=== PATIENT | female | born 1995 | race African-American/Black ===

== ENCOUNTER 2018-05-29 19:44 | Emergency (ER) | payer MEDICAID, OTHER ==
[~2018-05-29] VITALS: Ht 172.7 cm; Wt 78.0 kg
[2018-05-29 23:13] VITALS: BP 125/53
== END 2018-05-29 23:23 | disposition home or self-care (01) ==
LOC: ER 19:44
DX: O26.891 Other specified pregnancy related conditions, first trimester (principal); H44.002 Unspecified purulent endophthalmitis, left eye; Z3A.12 12 weeks gestation of pregnancy
CPT/HCPCS: 10060; 99283

== ENCOUNTER 2018-06-27 19:02 | Emergency (ER) | payer OTHER ==
[~2018-06-27] VITALS: Ht 157.5 cm; Wt 82.0 kg
[2018-06-27 21:06] LABS: CHLORIDE 105 mEq/L (98-107)
[2018-06-27 21:17] LABS: CLARITY URINE CLOUDY (CLEAR); COLOR URINE YELLOW (YELLOW); KETONES URINE NEGATIVE (NEGATIVE); LEUKOCYTE ESTERASE URINE 1+ (NEGATIVE); NITRITE URINE NEGATIVE (NEGATIVE); OCCULT BLOOD URINE NEGATIVE (NEGATIVE); PROTEIN URINE NEGATIVE (NEGATIVE); SPECIFIC GRAVITY URINE 1.022 (1.005-1.030)
[2018-06-27 21:29] LABS: *AMPHETAMINES SCREEN URINE NEGATIVE (NEGATIVE); *BARBITURATES SCREEN URINE NEGATIVE (NEGATIVE); *BENZODIAZEPINES SCREEN URINE NEGATIVE (NEGATIVE); *COCAINE SCREEN URINE NEGATIVE (NEGATIVE); CANNABINOID URINE SCREEN NEGATIVE (NEGATIVE); METHADONE URINE SCREEN NEGATIVE (NEGATIVE); OPIATES URINE SCREEN NEGATIVE (NEGATIVE); PHENCYCLIDINE URINE SCREEN NEGATIVE (NEGATIVE)
[2018-06-27 21:30] VITALS: BP 137/68
[2018-06-27 21:30] LABS: B-HCG QUANTITATIVE 12768 mIU/mL (<3)
[2018-06-27 21:39] LABS: BASOPHILS % 0.6 % (0.0-2.0); EOSINOPHILS % 2.2 % (0.0-5.0); HEMATOCRIT. 35.1 % (36.0-48.0); HEMOGLOBIN. 12.6 g/dL (12.0-16.0); LYMPHOCYTES % 22.7 % (20.0-50.0); MEAN CORPUSCULAR HEMOGLOBIN 29.5 pg (28.0-32.0); MEAN CORPUSCULAR VOLUME 82.1 fL (81.0-99.0); MEAN PLATELET VOLUME 8.1 fl (7.4-10.4); MONOCYTES % 12.8 % (2.0-8.0); NEUTROPHILS % 61.7 % (40.0-76.0); PLATELET 298 x1000/uL (130-400); RED BLOOD CELL COUNT 4.27 mill/uL (4.2-5.4); RED CELL DISTRIBUTION WIDTH 14.7 % (11.6-14.6)
[2018-06-27] MEDS ORDERED: NITROFURANTOIN 100MG M/M CAPSULE PO ONE (23:45)
== END 2018-06-27 23:24 | disposition left against medical advice (07) ==
LOC: ER 19:02
DX: O99.89 Other specified diseases and conditions complicating pregnancy, childbirth and the puerperium (principal); J06.9 Acute upper respiratory infection, unspecified; E86.0 Dehydration; O23.42 Unspecified infection of urinary tract in pregnancy, second trimester; O26.832 Pregnancy related renal disease, second trimester; N28.9 Disorder of kidney and ureter, unspecified; O99.282 Endocrine, nutritional and metabolic diseases complicating pregnancy, second trimester; E88.09 Other disorders of plasma-protein metabolism, not elsewhere classified; D72.821 Monocytosis (symptomatic); Z3A.16 16 weeks gestation of pregnancy
CPT/HCPCS: 36415; 76815; 80305; 81025; 84702; 87070; 87430; 87804; 99285

== ENCOUNTER 2022-01-22 11:04 | Emergency (ER) | payer OTHER ==
[~2022-01-22] VITALS: Ht 177.8 cm; Wt 91.0 kg
[2022-01-22] MEDS ORDERED: NAPR-681 PO (11:35)
[2022-01-22] MEDS ORDERED: AMOX-494 PO (11:35)
[2022-01-22 12:02] VITALS: BP 137/85
== END 2022-01-22 12:15 | disposition home or self-care (01) ==
LOC: ER 11:04
DX: J02.9 Acute pharyngitis, unspecified (principal); Z98.890 Other specified postprocedural states
CPT/HCPCS: 99283

== ENCOUNTER 2022-11-20 14:11 | Emergency (ER) | payer MEDICAID, OTHER ==
[~2022-11-20] VITALS: Ht 177.8 cm; Wt 96.0 kg
[~2022-11-20 14:11] MED LIST: AMOX-494 PO; NAPR-681 PO
[2022-11-20 14:14] VITALS: BP 124/59
[2022-11-20] MEDS ORDERED: ACETAMINOPHEN 325MG TABLET PO PRN (15:00)
[2022-11-20 15:13] LABS: CLARITY URINE TURBID (CLEAR); COLOR URINE YELLOW (YELLOW); KETONES URINE NEGATIVE (NEGATIVE); LEUKOCYTE ESTERASE URINE 2+ (NEGATIVE); NITRITE URINE NEGATIVE (NEGATIVE); OCCULT BLOOD URINE NEGATIVE (NEGATIVE); PROTEIN URINE NEGATIVE (NEGATIVE); SPECIFIC GRAVITY URINE 1.019 (1.005-1.030)
[2022-11-20 15:45] LABS: CHLORIDE 109 mEq/L (98-107)
[2022-11-20 15:46] LABS: BASOPHILS % 0.5 % (0.0-2.0); EOSINOPHILS % 1.1 % (0.0-5.0); HEMATOCRIT. 30.9 % (36.0-48.0); HEMOGLOBIN. 10.5 g/dL (12.0-16.0); MEAN CORPUSCULAR HEMOGLOBIN 26.1 pg (28.0-32.0); MEAN CORPUSCULAR VOLUME 76.7 fL (81.0-99.0); MEAN PLATELET VOLUME 8.2 fl (7.4-10.4); MONOCYTES % 8.2 % (2.0-8.0); NEUTROPHILS % 63.2 % (40.0-76.0); PLATELET 299 x1000/uL (130-400); RED BLOOD CELL COUNT 4.03 mill/uL (4.2-5.4)
[2022-11-20 16:09] LABS: B-HCG QUANTITATIVE 3367 mIU/mL (<3)
[2022-11-20] MEDS ORDERED: HYDR453.3 TP (16:46)
[2022-11-20] MEDS ORDERED: CEPH500T MT (16:46)
== END 2022-11-20 17:26 | disposition home or self-care (01) ==
LOC: ER 14:11
DX: O20.0 Threatened abortion (principal); Z3A.20 20 weeks gestation of pregnancy; O23.42 Unspecified infection of urinary tract in pregnancy, second trimester; N39.0 Urinary tract infection, site not specified
CPT/HCPCS: 36415; 76805; 80053; 81003; 81025; 84702; 85025; 86850; 86900; 99284

== ENCOUNTER 2023-08-18 08:08 | Emergency (ER) | payer MEDICAID, OTHER ==
[~2023-08-18] VITALS: Ht 180.3 cm; Wt 102.1 kg
[~2023-08-18 08:08] MED LIST changes: +CEPH500T MT; +HYDR453.3 TP
[2023-08-18 08:27] VITALS: O2SAT 99
[2023-08-18] MEDS ORDERED: DEXAMETHASONE 10 MG/ML VIAL IV ONE (08:30)
[2023-08-18 11:02] VITALS: BP 136/65; PULSE 81; RESP 16; TEMP 98.6
== END 2023-08-18 11:05 | disposition home or self-care (01) ==
LOC: ER 08:08
DX: J02.9 Acute pharyngitis, unspecified (principal); Z20.822 Contact with and (suspected) exposure to COVID-19
CPT/HCPCS: 87430; 87070; 96374; 99283; 87426; J1100; C9803; Z7610 ×2

== ENCOUNTER 2023-09-19 08:21 | Emergency (ER) | payer OTHER ==
[~2023-09-19] VITALS: Ht 172.7 cm; Wt 86.0 kg
[2023-09-19 08:28] VITALS: BP 142/95; PULSE 72; RESP 20; TEMP 98.4; O2SAT 99
[2023-09-19 10:10] LABS: BASOPHILS % 1.2 % (0.0-2.0); DIFFERENTIAL COMMENT 0; EOSINOPHILS % 1.6 % (0.0-5.0); HEMATOCRIT. 37.4 % (36.0-48.0); HEMOGLOBIN. 12.1 g/dL (12.0-16.0); LYMPHOCYTES % 35.4 % (20.0-50.0); MEAN CORPUSCULAR HEMOGLOBIN 24.5 pg (28.0-32.0); MEAN CORPUSCULAR HGB CONC 32.3 g/dL (31.0-37.0); MEAN PLATELET VOLUME 7.5 fl (7.4-10.4); MONOCYTES % 8.7 % (2.0-8.0); NEUTROPHILS % 53.1 % (40.0-76.0); PLATELET 401 x1000/uL (130-400); RED BLOOD CELL COUNT 4.93 mill/uL (4.2-5.4); RED CELL DISTRIBUTION WIDTH 18.7 % (11.6-14.6); WHITE BLOOD COUNT 5.7 x1000/uL (4.5-11.0)
[2023-09-19 10:45] LABS: HCG SCREEN NEGATIVE
[2023-09-19 10:52] LABS: CLARITY URINE CLEAR (CLEAR); COLOR URINE YELLOW (YELLOW); GLUCOSE URINE NEGATIVE (NEGATIVE); KETONES URINE NEGATIVE (NEGATIVE); LEUKOCYTE ESTERASE URINE NEGATIVE (NEGATIVE); NITRITE URINE NEGATIVE (NEGATIVE); OCCULT BLOOD URINE NEGATIVE (NEGATIVE); PH URINE 5.5 (4.5-8.0); PROTEIN URINE NEGATIVE (NEGATIVE); SPECIFIC GRAVITY URINE 1.011 (1.005-1.030); UROBILINOGEN URINE 0.2 E.U./dL (0.2-1.0)
[2023-09-19 11:36] LABS: *AMPHETAMINES SCREEN URINE NEGATIVE (NEGATIVE); *BARBITURATES SCREEN URINE NEGATIVE (NEGATIVE); *BENZODIAZEPINES SCREEN URINE NEGATIVE (NEGATIVE); *COCAINE SCREEN URINE NEGATIVE (NEGATIVE); CANNABINOID URINE SCREEN NEGATIVE (NEGATIVE); ECSTASY MDMA SCREEN URINE NEGATIVE (NEGATIVE); METHADONE URINE SCREEN Neg (NEGATIVE); OPIATES URINE SCREEN NEGATIVE (NEGATIVE); PHENCYCLIDINE URINE SCREEN NEGATIVE (NEGATIVE)
[2023-09-19] MEDS ORDERED: IBUPROFEN 600MG TABLET PO ONE (14:45)
[2023-09-19 15:03] LABS: CALCIUM 9.6 mg/dL (8.7-10.4); CARBON DIOXIDE 15 mEq/L (21-32); CHLORIDE 103 mEq/L (98-107); CREATININE 0.7 mg/dL (0.6-1.0); GLUCOSE 74 mg/dL (70-105); POTASSIUM 3.6 mEq/L (3.5-5.1); PROTEIN TOTAL 8.7 g/dL (6.0-8.3); SODIUM 137 mEq/L (136-145); UREA NITROGEN BLOOD 11 mg/dL (9-23)
[2023-09-19 15:04] LABS: ACETAMINOPHEN < 2 ug/mL (10-30); ALANINE AMINOTRANSFERASE < 7 IU/L (10-49); ALBUMIN 4.5 g/dL (3.2-4.8); ASPARTATE AMINOTRANSFERASE 15 IU/L (<34); BILIRUBIN TOTAL 8.7 mg/dL (0.1-1.0); ETHANOL BLOOD < 10 mg/dL (<10)
== END 2023-09-19 12:48 | disposition home or self-care (01) ==
LOC: ER 08:21
DX: R10.33 Periumbilical pain (principal)
CPT/HCPCS: 36415; 80053; 80305; 80307; 80320; 80329; 81003; 84703; 85025; 99283; G0480